=== PATIENT | female | born 1950 | race Caucasian/White ===

== ENCOUNTER → 2023-10-14 13:06 | Outpatient (REF) | payer BC, SELFPAY | LOC: WDC 13:06 | PROVIDERS: ATTENDING PHYSICIAN Physician Assistant | DX: Z12.31 Encounter for screening mammogram for malignant neoplasm of breast (principal) | CPT/HCPCS: 77063; 77067 ==

== ENCOUNTER → 2024-11-23 11:26 | Outpatient (REF) | payer BC, SELFPAY | LOC: WDC 11:26 | PROVIDERS: ATTENDING PHYSICIAN Physician Assistant | DX: Z12.31 Encounter for screening mammogram for malignant neoplasm of breast (principal) | CPT/HCPCS: 77063; 77067 ==

== ENCOUNTER → 2025-03-22 10:22 | Outpatient (REF) | payer BC, SELFPAY | LOC: RAD 10:22 | PROVIDERS: ATTENDING PHYSICIAN Physician Assistant; FAMILY PHYSICIAN Family Medicine | DX: J22 Unspecified acute lower respiratory infection (principal) | CPT/HCPCS: 71046 ==